=== PATIENT | male | born 1995 | race Caucasian/White ===

== ENCOUNTER 2023-04-22 21:24 | Emergency (ER) | payer SELFPAY ==
[~2023-04-22] VITALS: Ht 175.3 cm; Wt 59.0 kg
[2023-04-22] MEDS ORDERED: HYDROMORPHONE 1 MG/1 ML DISP.SYRIN ONE ×2 (22:25→23:57)
[2023-04-22] MEDS ORDERED: ONDANSETRON 4 MG/2 ML VIAL ONE (22:25)
[2023-04-22] MEDS ORDERED: HYDROMORPHONE 1 MG/1 ML DISP.SYRIN IV ONE (22:30)
[2023-04-22] MEDS ORDERED: ONDANSETRON 4 MG/2 ML VIAL IV ONE (22:30)
[2023-04-22] MEDS ORDERED: IV NORMAL SALINE 1000 ML BAG IV ONE (22:30)
[2023-04-22 22:54] LABS: BASOPHILS % (AUTO) 0.4 % (0.0-2.0); EOSINOPHILS % (AUTO) 0.2 % (0.0-7.0); HEMATOCRIT 40.4 % (36.7-47.1); HEMOGLOBIN 13.8 g/dL (12.5-16.3); LYMPHOCYTES # (AUTO) 1.1 K/uL (0.8-4.8); LYMPHOCYTES % (AUTO) 19.6 % (20.5-51.5); MEAN CORPUSCULAR HEMOGLOBIN 30.6 uug (23.8-33.4); MEAN CORPUSCULAR HGB CONC 34 g/dL (32.5-36.3); MEAN CORPUSCULAR VOLUME 89.8 fL (73.0-96.2); MONOCYTES # (AUTO) 0.3 K/uL (0.1-1.30); MONOCYTES % (AUTO) 4.6 % (0.0-11.0); NEUTROPHILS # (AUTO) 4.2 K/uL (1.8-8.9); NEUTROPHILS % (AUTO) 75.2 % (38.5-71.5); PLATELET COUNT (AUTO) 242 K/uL (152-348); RED CELL DISTRIBUTION WIDTH 12.8 % (12.1-16.2); WHITE BLOOD COUNT (AUTO) 5.6 K/uL (3.6-10.2)
[2023-04-22 23:04] LABS: CALCIUM 9.3 mg/dL (8.5-10.1); CREATININE 1.3 mg/dL (0.6-1.3); POTASSIUM 3.9 mmol/L (3.5-5.1)
[2023-04-22 23:05] LABS: *BILIRUBIN,URIN NEGATIVE (NEGATIVE); *BLOOD, URINE NEGATIVE (NEGATIVE); *CLARITY,URINE CLEAR (CLEAR); *COLOR,URINE YELLOW (YELLOW); *KETONES,URINE NEGATIVE (NEGATIVE); *PROTEIN,URINE 2+ (NEGATIVE); LEUKOCYTE ESTERASE ,URINE NEGATIVE (NEGATIVE); NITRITE, URINE NEGATIVE (NEGATIVE); UGLUCOSE NEGATIVE (NEGATIVE)
[2023-04-22 23:10] LABS: ALBUMIN 3.8 g/dL (3.4-5.0); BILIRUBIN,DIRECT 0.1 mg/dL (0.0-0.2); BILIRUBIN,TOTAL 0.5 mg/dL (0.2-1.0); TOTAL PROTEIN, SERUM 6.8 g/dL (6.4-8.2)
[2023-04-22 23:18] LABS: RBC,URINE 0-3 /HPF (0-3)
[2023-04-22 23:19] LABS: BACTERIA,URINE FEW /HPF (NONE SEEN); SPERM,URINE FEW /HPF (NONE SEEN); SQUAMOUS EPITHELIAL CELL,UR NONE SEEN /HPF (NONE SEEN); URINE AMORPHOUS URATE MODERATE /HPF; WBC,URINE 0-3 /HPF (0-3)
[2023-04-22] MEDS ORDERED: IOHEXOL 300MG/ML 100 ML INFUS..BTL ONE (23:33)
[2023-04-22] MEDS ORDERED: IV NORMAL SALINE 250 ML IV ONE (23:34)
[2023-04-22] MEDS ORDERED: SWABABLE VALVE TRANSFER SET EA MC ONE (23:34)
[2023-04-23] MEDS ORDERED: HYDROMORPHONE 1 MG/1 ML DISP.SYRIN IV ONE
[2023-04-23] MEDS ORDERED: HYDR-3980 PO (04:14)
[2023-04-23] MEDS ORDERED: ONDA4TAB5 PO (04:14)
[2023-04-23 05:11] VITALS: BP 132/68; TEMP 97.8; O2SAT 98
== END 2023-04-23 05:15 | disposition home or self-care (01) ==
LOC: ER 21:27
DX: N50.812 Left testicular pain (principal)
CPT/HCPCS: 99285; 74177; 96374; 96361; 96375; 80076; 80048; 81001; 83690; 85025; 36415; 76870; 96376; J2405; Q9967; J1170 ×2; J7040; A4663

== ENCOUNTER 2023-05-01 11:52 | Emergency (ER) | payer SELFPAY ==
[~2023-05-01] VITALS: Ht 175.3 cm; Wt 59.0 kg
[~2023-05-01 11:52] MED LIST: HYDR-3980 PO; ONDA4TAB5 PO
[2023-05-01 12:11] VITALS: O2SAT 99
[2023-05-01] MEDS ORDERED: SWABABLE VALVE TRANSFER SET EA MC ONE (12:44)
[2023-05-01] MEDS ORDERED: IOHEXOL 300MG/ML 100 ML INFUS..BTL ONE (12:44)
[2023-05-01] MEDS ORDERED: IV NORMAL SALINE 250 ML IV ONE (12:44)
[2023-05-01 12:59] LABS: BASOPHILS % (AUTO) 0.6 % (0.0-2.0); EOSINOPHILS % (AUTO) 0.1 % (0.0-7.0); HEMATOCRIT 43.7 % (36.7-47.1); HEMOGLOBIN 14.9 g/dL (12.5-16.3); LYMPHOCYTES # (AUTO) 1.5 K/uL (0.8-4.8); LYMPHOCYTES % (AUTO) 31.9 % (20.5-51.5); MEAN CORPUSCULAR HEMOGLOBIN 30.3 uug (23.8-33.4); MEAN CORPUSCULAR HGB CONC 34 g/dL (32.5-36.3); MEAN CORPUSCULAR VOLUME 88.7 fL (73.0-96.2); MONOCYTES # (AUTO) 0.3 K/uL (0.1-1.30); MONOCYTES % (AUTO) 6.3 % (0.0-11.0); NEUTROPHILS # (AUTO) 2.9 K/uL (1.8-8.9); NEUTROPHILS % (AUTO) 61.1 % (38.5-71.5); PLATELET COUNT (AUTO) 251 K/uL (152-348); RED BLOOD CELL COUNT(AUTO) 4.92 MIL/uL (4.06-5.63); RED CELL DISTRIBUTION WIDTH 12.7 % (12.1-16.2); WHITE BLOOD COUNT (AUTO) 4.7 K/uL (3.6-10.2)
[2023-05-01 13:09] LABS: CALCIUM 9.3 mg/dL (8.5-10.1); CREATININE 1.1 mg/dL (0.6-1.3); POTASSIUM 4.1 mmol/L (3.5-5.1)
[2023-05-01 13:12] LABS: DIFFERENTIAL COMMENT 1
[2023-05-01 13:15] LABS: ALBUMIN 4.1 g/dL (3.4-5.0); BILIRUBIN,DIRECT 0.3 mg/dL (0.0-0.2); BILIRUBIN,TOTAL 1.2 mg/dL (0.2-1.0); TOTAL PROTEIN, SERUM 7.5 g/dL (6.4-8.2)
== END 2023-05-01 13:20 | disposition left against medical advice (07) ==
LOC: ER 12:22
DX: R10.2 Pelvic and perineal pain (principal); Z79.899 Other long term (current) drug therapy
CPT/HCPCS: 36415; 85025; A4663; Q9967

== ENCOUNTER 2023-06-25 17:48 | Emergency (ER) | payer SELFPAY ==
[~2023-06-25] VITALS: Ht 175.3 cm; Wt 58.1 kg
[2023-06-25 18:03] VITALS: O2SAT 98
[2023-06-25] MEDS ORDERED: DOXY100C5 PO (18:14)
== END 2023-06-25 18:38 | disposition home or self-care (01) ==
LOC: ER 17:49
DX: L73.9 Follicular disorder, unspecified (principal); Z79.899 Other long term (current) drug therapy
CPT/HCPCS: A4606; A4663

== ENCOUNTER 2023-08-05 15:00 | Emergency (ER) | payer SELFPAY ==
[~2023-08-05] VITALS: Ht 175.3 cm; Wt 56.7 kg
[~2023-08-05 15:00] MED LIST changes: +DOXY100C5 PO
[2023-08-05] MEDS ORDERED: SULF1TAB48 PO (16:06)
[2023-08-05] MEDS ORDERED: MUPI22OI2 TP (16:06)
[2023-08-05 16:12] VITALS: BP 136/78; O2SAT 100
== END 2023-08-05 16:12 | disposition home or self-care (01) ==
LOC: ER 15:00
DX: L73.9 Follicular disorder, unspecified (principal); Z79.2 Long term (current) use of antibiotics; Z79.899 Other long term (current) drug therapy
CPT/HCPCS: A4606; A4663